=== PATIENT | female | born 1985 | race Two or more races ===

== ENCOUNTER 2016-07-18 16:10 | Emergency (ER) | payer BC ==
[2016-07-18 16:18] VITALS: BMI 33.0
[2016-07-18 16:22] VITALS: BP 106/69; PULSE 69; RESP 16; TEMP 98.2; O2SAT 100
[2016-07-18] MEDS ORDERED: Sodium Chloride 0.9% 1,000 ML IV STA (16:30)
--- NOTE | 2016-07-18 16:48 | ED PDOC ---
Arrival/HPI - General Chief Complaint: Female Genitourinary Time Seen by Provider: 07/18/16 16:19 Historian: Patient - History of Present Illness Narrative History of Present Illness (Text): 07/18/16 16:20 Aby Garcia is a 31 year old female who denies any past medical history presents to the ED complaining of dysuria, urgency, and pelvic pain since this morning. Patient reports when she urinates the pain radiates to her back. She is also fasting and adjusting her diet so she feels perhaps that may be upsetting her stomach. Patient denies any fever, chills, nausea, vomiting, diarrhea, vaginal bleeding or discharge, neck pain, headache, dizziness, or any other complaints. LNMP: July 08, for two days P: 1 A: 1 PMD: None reported. Time/Duration: 24 hours Symptom Onset: Gradual Symptom Course: Unchanged Activities at Onset: Light Context: Home Past Medical History - Provider Review Nursing Documentation Reviewed: Yes - Infectious Disease Hx of Infectious Diseases: None - Psychiatric Hx Substance Use: No - Surgical History Hx Appendectomy: Yes - Anesthesia Hx Anesthesia: No Hx Anesthesia Reactions: No Hx Malignant Hyperthermia: No Family/Social History - Physician Review Nursing Documentation Reviewed: Yes Family/Social History: No Known Family HX Smoking Status: Never Smoked Hx Alcohol Use: No Hx Substance Use: No Allergies/Home Meds Allergies/Adverse Reactions: Allergies No Known Allergies Allergy (Verified 07/18/16 16:17) Review of Systems - Physician Review All systems were reviewed & negative as marked: Yes - Review of Systems Constitutional: Normal. absent: Fevers Eyes: Normal ENT: Normal Respiratory: Normal. absent: SOB, Cough Cardiovascular: Normal. absent: Chest Pain Gastrointestinal: Normal. absent: Abdominal Pain, Diarrhea, Nausea, Vomiting Genitourinary Female: Dysuria, Other (Urgency; Pelvic Pain). absent: Frequency , Hematuria, Urine Output Changes, Vaginal Bleeding Musculoskeletal: Normal. absent: Back Pain, Neck Pain Skin: Normal Neurological: Normal. absent: Headache, Dizziness Endocrine: Normal Hemo/Lymphatic: Normal Psychiatric: Normal Physical Exam Vital Signs Reviewed: Yes Vital Signs Temp Pulse Resp BP Pulse Ox 07/18/16 16:18 98.2 F 69 16 106/69 100 Temperature: Afebrile Blood Pressure: Normal Pulse: Regular Respiratory Rate: Normal Appearance: Positive for: Well-Appearing, Non-Toxic, Comfortable Pain Distress: None Mental Status: Positive for: Alert and Oriented X 3 - Systems Exam Head: Present: Atraumatic, Normocephalic Pupils: Present: PERRL Extroacular Muscles: Present: EOMI Conjunctiva: Present: Normal Mouth: Present: Moist Mucous Membranes Neck: Present: Normal Range of Motion Respiratory/Chest: Present: Clear to Auscultation, Good Air Exchange. No: Respiratory Distress, Accessory Muscle Use Cardiovascular: Present: Regular Rate and Rhythm, Normal S1, S2. No: Murmurs Abdomen: Present: Normal Bowel Sounds. No: Tenderness, Distention, Peritoneal Signs Genitourinary/Pelvic Exam: Present: Normal External Genitalia, Vaginal Discharge (Thick White Discharge), Cervical os Closed. No: Vaginal Bleeding, Vaginal Lesions, Adenexal Tenderness, Adenexal Mass, Cervical Motion Tendernes Back: Present: Normal Inspection. No: CVA Tenderness Upper Extremity: Present: Normal Inspection. No: Cyanosis, Edema Lower Extremity: Present: Normal Inspection. No: Edema Neurological: Present: GCS=15, CN II-XII Intact, Speech Normal Skin: Present: Warm, Dry, Normal Color. No: Rashes Psychiatric: Present: Alert, Oriented x 3, Normal Insight, Normal Concentration Medical Decision Making ED Course and Treatment: 07/18/16 16:20 Impression: 31 year old female complaining of dysuria, urgency, and pelvic pain since this morning. Differential Diagnosis include but are not limited to: UTI vs. Vaginal candidiasis Plan: -- Labs, Urinalysis -- IV Fluids -- Urine Culture -- Reassess and disposition Progress Notes: 07/18/16 17:45 Patient feels much better after IVF and toradol IV. WBC normal. UA has trace blood but negative for Nitrate, LE and WBC. Considering she has UTI symptoms, will tx with Keflex and have her f/u urine culture. Will treat vaginal candidiasis. - Lab Interpretations Lab Results: 07/18/16 16:30 07/18/16 16:30 Lab Results 07/18/16 16:30: WBC 5.3, RBC 4.60, Hgb 12.3, Hct 37.5, MCV 81.5, MCH 26.7, MCHC 32.8, RDW 13.1, Plt Count 247, MPV 10.1, Neutrophils % (Manual) Pending, Lymphocytes % (Manual) Pending, Monocytes % (Manual) Pending, Sodium 142, Potassium 4.1, Chloride 105, Carbon Dioxide 26, Anion Gap 15, BUN 8, Creatinine 0.7, Est GFR ( Amer) > 60, Est GFR (Non-Af Amer) > 60, Random Glucose 89 , Calcium 9.7, Total Bilirubin 0.4, AST 27, ALT 18, Alkaline Phosphatase 84, Total Protein 8.6 H, Albumin 4.3, Globulin 4.3, Albumin/Globulin Ratio 1.0 L, Urine Color Yellow, Urine Appearance Clear, Urine pH 7.0, Ur Specific [place] < = 1.005, Urine Protein Negative, Urine Glucose (UA) Negative, Urine Ketones Negative, Urine Blood Trace-intact H, Urine Nitrate Negative, Urine Bilirubin Negative, Urine Urobilinogen 0.2, Ur Leukocyte Esterase Negative, Urine RBC 0 - 2, Urine WBC 0 - 2, Ur Epithelial Cells 3 - 4, Urine Bacteria Neg I have reviewed the lab results: Yes Interpretation: All labs normal - Medication Orders Current Medication Orders: Discontinued Medications Sodium Chloride (Sodium Chloride 0.9%) 1,000 mls @ 999 mls/hr IV .Q1H1M STA Stop: 07/18/16 17:30 Last Admin: 07/18/16 16:39 Dose: 999 MLS/HR eMAR Start Stop Document 07/18/16 16:39 SE (Rec: 07/18/16 16:39 SE [id number]) Intravenous Solution Start Date 07/18/16 Start Time 16:39 Ketorolac Tromethamine (Toradol) 15 mg IVP STAT STA Stop: 07/18/16 17:12 Last Admin: 07/18/16 17:20 Dose: 15 MG IVP Administration Document 07/18/16 17:20 SE (Rec: 07/18/16 17:20 SE [id number]) Charges for Administration # of IVP Administrations 1 Ondansetron HCl (Zofran Inj) 4 mg IVP STAT STA Stop: 07/18/16 16:30 Last Admin: 07/18/16 16:42 Dose: 4 MG IVP Administration Document 07/18/16 16:42 SE (Rec: 07/18/16 16:43 SE [id number]) Charges for Administration # of IVP Administrations 1 - Scribe Statement The provider has reviewed the documentation as recorded by the Calvinibe Anatoliy Muñoz Provider Attestation: All medical record entries made by the Bernice were at my direction and personally dictated by me. I have reviewed the chart and agree that the record accurately reflects my personal performance of the history, physical exam, medical decision making, and the department course for this patient. I have also personally directed, reviewed, and agree with the discharge instructions and disposition. Disposition/Present on Arrival - Present on Arrival Any Indicators Present on Arrival: No History of DVT/PE: No History of Uncontrolled Diabetes: No Urinary Catheter: No History of Decub. Ulcer: No History Surgical Site Infection Following: None - Disposition Have Diagnosis and Disposition been Completed?: Yes Diagnosis: Vaginal candidiasis, UTI (urinary tract infection) Disposition Time: 17:47 Patient Plan: Discharge Patient Problems: Current Active Problems Problem Status Diagnosed UTI (urinary tract infection) Acute Vaginal candidiasis Acute Condition: IMPROVED Discharge Instructions (ExitCare): Vulvovaginal Candidiasis (ED) Additional Instructions: Ms Garcia, thank you for letting us take care of you today. Your provider was Dr Williamson. You were treated for Vaginal Candidiasis. The emergency medical care you received today was directed at your acute symptoms. If you were prescribed any medication, please fill it and take as directed. It may take several days for your symptoms to resolve. Return to the Emergency Department if your symptoms worsen, do not improve, or if you have any other problems. Please contact your doctor or call one of the physicians/clinics you have been referred to that are listed on the Patient Visit Information form that is included in your discharge packet. Bring any paperwork you were given at discharge with you along with any medications you are taking to your follow up visit. Our treatment cannot replace ongoing medical care by a primary care provider (PCP) outside of the emergency department. Thank you for allowing the [facility] team to be part of your care today. If you had an X-Ray or CT scan: A Radiologist will review the ED reading if any change in treatment is needed we will contact you. If you had a blood, urine, or wound culture: It will take several days for the results, if any change in treatment is needed we will contact you. If you had an STI test: It will take 48 hours for the results. Please call after 1 week if you have not heard back. Prescriptions: Ciprofloxacin HCl [Cipro] 250 mg PO BID #6 tablet Clotrimazole 1% [Lotrimin AF 1%] 1 applic TOP QPM #7 bottle Ibuprofen [Motrin] 600 mg PO Q6 PRN #30 tab PRN Reason: Pain, Moderate (4-7) Referrals: Loni Sales MD [Staff Provider] - Follow up with primary Forms: WORK NOTE
[2016-07-18 16:56] LABS: HEMATOCRIT 37.5 % (36.0-48.0); MEAN CELL VOLUME 81.5 fL (80.0-105.0); MEAN CORPUSCULAR HEMOGLOBIN 26.7 pg (25.0-35.0); MEAN CORPUSCULAR HGB CONC 32.8 g/dl (31.0-37.0); MEAN PLATELET VOLUME 10.1 fl (7.0-11.0); PLATELET COUNT 247 [, 10^3/uL] (120.0-450.0); RED CELL DISTRIBUTION WIDTH 13.1 % (11.5-14.5); WHITE BLOOD COUNT 5.3 [, 10^3/ul] (4.5-11.0)
[2016-07-18 16:57] LABS: URINE BILIRUBIN NEGATIVE (NEGATIVE); URINE BLOOD TRACE-INTACT (NEGATIVE); URINE GLUCOSE (UA) NEGATIVE (NEGATIVE); URINE KETONE NEGATIVE (NEGATIVE); URINE LEUKOCYTE ESTERASE NEGATIVE Leu/uL (NEGATIVE); URINE PROTEIN NEGATIVE mg/dL (<30 mg/dL); URINE UROBILINOGEN 0.2 E.U./dL (<1 E.U./dL)
[2016-07-18 16:58] LABS: ADD MANUAL DIFF? YES
[2016-07-18 16:59] LABS: URINE APPEARANCE CLEAR (CLEAR); URINE COLOR YELLOW (YELLOW)
[2016-07-18 17:11] LABS: ALKALINE PHOSPHATASE 84 U/L (38-133); ALT/SGPT 18 U/L (7-56); AST/SGOT 27 U/L (15-39); BILIRUBIN,TOTAL 0.4 mg/dL (0.2-1.3); BLOOD UREA NITROGEN 8 mg/dL (7-21); CALCIUM 9.7 mg/dL (8.4-10.5); CARBON DIOXIDE 26 mmol/L (21-33); CHLORIDE 105 mmol/L (98-107); GFR AFRICAN-AMERICAN > 60; GLUCOSE,RANDOM 89 mg/dL (70-110); POTASSIUM 4.1 mmol/L (3.6-5.0); SODIUM 142 mmol/L (132-148); TOTAL PROTEIN 8.6 g/dL (5.8-8.3)
[2016-07-18 17:34] LABS: URINE BACTERIA NEG (NEG); URINE RBC 0 - 2 /hpf (0-2); URINE WBC 0 - 2 /hpf (0-6)
[2016-07-18 18:32] LABS: EOSINOPHIL 1 % (0.0-3.0); NEUTROPHIL 34 % (50.0-70.0); PLATELET ESTIMATE NORMAL (NORMAL)
[2016-07-18 18:33] LABS: HYPOCHROMIA SLIGHT; LARGE PLATELETS PRESENT
== END 2016-07-18 18:08 | disposition home or self-care (01) ==
LOC: ED 16:10
DX: B37.3 Candidiasis of vulva and vagina (principal); N39.0 Urinary tract infection, site not specified
CPT/HCPCS: 80053; 81001; 85025; 87086; 87491; 87591; 96374; 96375; 99284; J1885; J2405; J7040